=== PATIENT | male | born 1980 ===

== ENCOUNTER 2025-01-10 08:00 | Day surgery (SDC) | payer OTHER ==
[2025-01-10] MEDS ORDERED: fentaNYL CITRATE 50 MCG/ML AMPUL IV PUSH ONE (10:45)
[2025-01-10] MEDS ORDERED: MIDAZOLAM HCL 2 MG/2 ML VIAL IV ONE (10:45)
[2025-01-10] MEDS ORDERED: DIPHENHYDRAMINE HCL 50 MG/ML VIAL 1ML IV ONE (10:45)
== END 2025-01-10 11:45 | disposition home or self-care (01) ==
LOC: AMB-ENDOS 08:00
PROVIDERS: ATTEND Colon & Rectal Surgery
DX: K57.30 Diverticulosis of large intestine without perforation or abscess without bleeding (principal); R19.4 Change in bowel habit

== ENCOUNTER → 2025-03-06 07:41 | Outpatient (CLI) | payer OTHER | END | disposition home or self-care (01) | LOC: TOM 07:41 | PROVIDERS: ATTEND Colon & Rectal Surgery | DX: R10.11 Right upper quadrant pain (principal) ==